=== PATIENT | female | born 1985 | race Caucasian/White ===

== ENCOUNTER 2018-08-10 19:26 | Emergency (ER) | payer OTHER ==
[~2018-08-10] VITALS: Ht 167.6 cm; Wt 64.0 kg
[~2018-08-10 19:26] MED LIST: BENADRYL25 MG PO; CEFTIN250 MG PO; DOLOGESIC CAPLE1 TAB PO; DOLOGESIC CAPSU1 CAP PO; LEVSIN/SL0.125 MG SL; MEDROLPACK PO; MONISTAT 31 EA VG; PHENERGAN25 MG PO; TRAM1TAB98 PO; VALISONE15 GM TP; ZEBUTAL CAPSULE1 CAP PO; ZYRTEC10 MG PO
[2018-08-11] MEDS ORDERED: OBSTETRIX DHA1 EACH PO (03:01)
== END 2018-08-11 03:07 | disposition home or self-care (01) ==
LOC: ER 19:26
DX: O26.891 Other specified pregnancy related conditions, first trimester (principal); R10.2 Pelvic and perineal pain; Z34.01 Encounter for supervision of normal first pregnancy, first trimester